=== PATIENT | female | born 1950 | race Caucasian/White ===

== ENCOUNTER 2020-01-13 14:13 | Inpatient (IN) | payer BC, OTHER, SELFPAY ==
[~2020-01-13] VITALS: Ht 154.9 cm; Wt 63.0 kg
[2020-01-13 14:51] VITALS: BP_SYST 102
--- NOTE | 2020-01-13 14:55 | NUR ---
SENT TO [facility]
--- NOTE | 2020-01-13 17:00 | NUR ---
PT IN WHEEL CHAIR AND LABS ORDERED
[2020-01-13 17:28] LABS: BASOPHILS % (AUTO) 0.2 % (0.0-2.0); HEMATOCRIT 42.3 % (36-48); HEMOGLOBIN 14.8 g/dL (12.0-16.0); LYMPHOCYTES # (AUTO) 1.4 K/uL (1.0-5.5); MEAN CORPUSCULAR HEMOGLOBIN 36 pg (27-31); MEAN CORPUSCULAR HGB CONC 35 % (32-36); MEAN CORPUSCULAR VOLUME 103 fL (79.0-98.0); MONOCYTES # (AUTO) 1.6 K/uL (0.0-1.0); MONOCYTES % (AUTO) 9.3 % (1.7-9.3); NEUTROPHILS # (AUTO) 14.4 K/uL (1.8-7.7); NEUTROPHILS % (AUTO) 82.5 % (40.0-70.0); PLATELET COUNT (AUTO) 328 K/uL (130-430); RED BLOOD CELL COUNT(AUTO) 4.11 MIL/uL (4.2-6.2); RED CELL DISTRIBUTION WIDTH 13.8 % (9.0-15.0); WHITE BLOOD COUNT (AUTO) 17.5 K/uL (4.8-10.8)
[2020-01-13 17:29] LABS: CALCIUM 9.1 mg/dL (8.4-11.0); CREATININE 0.91 mg/dL (0.55-1.30)
[2020-01-13] MEDS ORDERED: ONDANSETRON 4 MG ODT TAB PO ONE (17:30)
--- NOTE | 2020-01-13 17:40 | NUR ---
MEDCIATED WITH ALESSANDRA HERNANDEZ
[2020-01-13 17:52] LABS: ALBUMIN 2.7 g/dL (3.4-4.8); FREE T4 (FREE THYROXINE) 1.6 ng/dl (0.8-1.5); THYROID STIMULATING HORMONE 3.6 uIu/mL (0.36-3.74); TOTAL BILIRUBIN 1.3 mg/dL (0.0-1.0)
[2020-01-13 17:56] LABS: POTASSIUM 2.5 mmol/L (3.5-5.1)
--- NOTE | 2020-01-13 18:20 | NUR ---
placed in bed 2
--- NOTE | 2020-01-13 18:50 | NUR ---
Patient presented to ER C/O NGeneralized weakness. Patient ambulatory to ER A&Ox4 afebrile, nausea & vomiting present, denies Diarrhea, denies pain. Patient states she has increased weakness and decreased appetite x2 weeks, nausea & vomiting today. patient reports Hx HTN, diverticulitis, GERD and graves dz.
[2020-01-13] MEDS ORDERED: KCL 40 mEq in 100 mL (PREMIX) 100 ML IV ONE (19:00)
--- NOTE | 2020-01-13 19:10 | NUR ---
Note juliane in ED - 01/13/20 at 1919 by SDEDTD REPORT GIVEN TO HECTOR OLIVO, ENDORSED MEDICATION REC AND BELONGING LIST.
--- NOTE | 2020-01-13 19:15 | NUR ---
REPORT GIVEN TO HECTOR OLIVO, ENDORSED ALL CARE FOR CONTINUITY OF CARE.
--- NOTE | 2020-01-13 19:16 | NUR ---
SARAHI Serrano at bedside examining patient.
--- NOTE | 2020-01-13 19:20 | NUR ---
# 22 gauge angiocath placed to LAC. Use of asceptic technique. Opsite placed over site. Blood return noted. Blood for lab drawn from site. Flushed with 10 cc of normal saline. No evidence of infiltration noted. Patient tolerated well.
--- NOTE | 2020-01-13 19:26 | NUR ---
Patient states " I am allergy iodine.", Zach Arevalo notified.
[2020-01-13] MEDS ORDERED: ONDANSETRON HCL 4 MG/2 ML VIAL IVP ONE ×2 (19:30→21:00)
[2020-01-13] MEDS ORDERED: NACL 0.9% 1,000 ML IV ONE (20:00)
--- NOTE | 2020-01-13 20:01 | NUR ---
Patient came back from CT scan.
[2020-01-13] MEDS ORDERED: KCL 20 mEq in 100 mL (PREMIX) 100 ML IV ONE (20:12)
[2020-01-13] MEDS ORDERED: MAGNESIUM SULFATE 1 GM/2 ML VIAL IVP ONE (20:15)
--- NOTE | 2020-01-13 20:55 | NUR ---
ER at bedside examining patient.
--- NOTE | 2020-01-13 22:48 | NUR ---
Patient vomitting x2, given Zofran 4 mg IV as order.
--- NOTE | 2020-01-14 00:28 | NUR ---
Swabs Covid as order and send to lab.
[2020-01-14] MEDS ORDERED: MAGNESIUM SULFATE 50 ML IV ONE (00:32)
[2020-01-14] MEDS ORDERED: PROP10TA10 PO (01:18)
--- NOTE | 2020-01-14 01:19 | NUR ---
Patient had 3 home medications, patient is able to provide only one medication and could not remember another two medications.
[2020-01-14] MEDS ORDERED: KCL 20 mEq in 100 mL (PREMIX) 100 ML IV ONE (02:03)
--- NOTE | 2020-01-14 03:00 | NUR ---
Patient will be admitted to care of . Admitted to TELE unit. Will go to room 112A. Belongings list completed. Complete and up to date summary report printed. SBAR report to be given at bedside with opportunity for questions.
--- NOTE | 2020-01-14 03:10 | NUR ---
ADMISSION NOTE Received patient from ER via bradly, received report from GEOVANI YOUNG. Patient admitted with diagnosis of DYSPHAGIA & FAILURE TO THRIVE. Patient oriented to hospital routine, call light, toileting and safety-patient verbalized understanding.
[2020-01-14 03:27] VITALS: BP_SYST 142
--- NOTE | 2020-01-14 03:42 | NUR ---
Refused bed alarm: Patient reported having a fall yesterday d/t weakness. Explained to patient safety and fall precautions, including call light use and bed alarm purpose. Patient refused bed alarm despite education. Will continue monitoring.
--- NOTE | 2020-01-14 03:42 | NUR ---
CONSULTATION PAGED REASON FOR CONSULTATION: Dysphagia WAS CONSULT CALLED? Y PERSON WHO WAS NOTIFIED: Ailyn CONSULTING PHYSICIAN: Dr. Weiss CELL TOWER CLIMBER SPECIALTY: GI CELL TOWER CLIMBER PHONE NUMBER: [phone] ORDERING PHYSICIAN: Dr. Henry
[2020-01-14] MEDS ORDERED: LEVO25TA7 PO (07:25)
[2020-01-14] MEDS ORDERED: LIP20 PO (07:25)
[2020-01-14] MEDS ORDERED: OMEP20CA15 PO (07:25)
--- NOTE | 2020-01-14 07:35 | NUR ---
OPENING NOTES: RECEIVED PATIENT FROM STRAWHAT BLOCKING OPERATOR NURSE. PATIENT IS AWAKE AND ALERT x4 SITTING UP IN BED. PATIENT IS TOLERATING OXYGEN ON ROOM AIR WITH NO SIGNS OF DISTRESS OR SHORTNESS OF BREATH NOTED. PATIENT DENIES ANY PAIN AT THE MOMENT. IV SITE IS PATENT WITH NO SIGNS OF INFILTRATION NOTED. PATIENT IN STABLE CONDITION. SAFETY, FALL, AND ASPIRATION PRECAUTIONS ARE IN PLACE. BED LOCKED IN LOWEST POSITION WITH CALL LIGHT IN REACH. WILL CONTINUE TO MONITOR PATIENT FOR ANY CHANGES.
[2020-01-14] MEDS ORDERED: ONDANSETRON HCL 4 MG/2 ML VIAL IVP PRN (07:45)
[2020-01-14 07:59] LABS: ALBUMIN 2.1 g/dL (3.4-4.8); CALCIUM 7.8 mg/dL (8.4-11.0); CREATININE 0.89 mg/dL (0.55-1.30); TOTAL BILIRUBIN 0.8 mg/dL (0.0-1.0)
[2020-01-14 08:09] VITALS: BP_SYST 137
[2020-01-14 08:19] LABS: BASOPHILS % (AUTO) 0.3 % (0.0-2.0); HEMATOCRIT 38.3 % (36-48); HEMOGLOBIN 13.1 g/dL (12.0-16.0); LYMPHOCYTES # (AUTO) 1.5 K/uL (1.0-5.5); LYMPHOCYTES % (AUTO) 13.4 % (20.5-51.5); MEAN CORPUSCULAR HEMOGLOBIN 36 pg (27-31); MEAN CORPUSCULAR HGB CONC 34 % (32-36); MEAN CORPUSCULAR VOLUME 104 fL (79.0-98.0); MONOCYTES # (AUTO) 1.1 K/uL (0.0-1.0); MONOCYTES % (AUTO) 9.9 % (1.7-9.3); NEUTROPHILS # (AUTO) 8.8 K/uL (1.8-7.7); NEUTROPHILS % (AUTO) 76.4 % (40.0-70.0); PLATELET COUNT (AUTO) 210 K/uL (130-430); RED BLOOD CELL COUNT(AUTO) 3.67 MIL/uL (4.2-6.2); RED CELL DISTRIBUTION WIDTH 13.9 % (9.0-15.0); WHITE BLOOD COUNT (AUTO) 11.5 K/uL (4.8-10.8)
--- NOTE | 2020-01-14 08:23 | NUR ---
HIGH ALERT NOTE: Dr. Henry on the floor. Recieved high alert order from physician in person and identified within the medical roster to verify physician authenticity.
[2020-01-14 08:24] LABS: POTASSIUM 2.5 mmol/L (3.5-5.1)
[2020-01-14] MEDS ORDERED: POTASSIUM CHLORIDE 60 MEQ, LIDOCAINE JECT 2% PF 100 MG 75 MG in NS 500 ML IV ONE (08:30)
[2020-01-14] MEDS: PROPRANOLOL HCL 10 MG TABLET (INDERAL) PO SCH ×2 (09:00→09:49)
[2020-01-14] MEDS: ATORVASTATIN 20 MG TABLET PO SCH ×2 (09:00→09:49)
--- NOTE | 2020-01-14 09:10 | NUR ---
Nutrition Update Ej scale 18 noted. Pt admitted for dysphagia, failure to thrive Diet: NPO BMI: 20.8 kg/m2 RD to follow per nutrition care standards.
[2020-01-14] MEDS: D5NS 1,000 ML IV SCH ×3 (09:47→23:38)
[2020-01-14] MEDS: LEVOTHYROXINE SODIUM 0.025 MG TABLET PO ONE ×2 (09:49→10:04)
--- NOTE | 2020-01-14 10:25 | NUR ---
RN ROUNDS: PATIENT ASLEEP LAYING DOWN IN BED. PATIENT IS TOLERATING OXYGEN ON ROOM AIR WITH NO SIGNS OF DISTRESS OR SHORTNESS OF BREATH NOTED. IV SITE IS PATENT WITH NO SIGNS OF INFILTRATION NOTED AND RUNNING FLUIDS ORDERED. PATIENT IN STABLE CONDITION. WILL CONTINUE TO MONITOR PATIENT FOR ANY CHANGES.
[2020-01-14] MEDS: metroNIDAZOLE 500 mg/NS 100 ML IV SCH ×3 (10:41→21:18)
[2020-01-14] MEDS: LEVOFLOXACIN 500 MG/D5W 100 ML IV SCH (10:42)
[2020-01-14 12:22] VITALS: BP_SYST 117
--- NOTE | 2020-01-14 12:23 | NUR ---
RN ROUNDS: PATIENT IS AWAKE AND ALERT x4 LAYING DOWN IN BED. PATIENT IS TOLERATING OXYGEN ON ROOM AIR WITH NO SIGNS OF DISTRESS OR SHORTNESS OF BREATH NOTED. IV SITE IS PATENT WITH NO SIGNS OF INFILTRATION NOTED AND RUNNING FLUIDS ORDERED. PATIENT IN STABLE CONDITION. WILL CONTINUE TO MONITOR PATIENT FOR ANY CHANGES.
--- NOTE | 2020-01-14 16:25 | NUR ---
RN ROUNDS: PATIENT IS AWAKE AND ALERT x4 LAYING DOWN IN BED. PATIENT IS TOLERATING OXYGEN ON ROOM AIR WITH NO SIGNS OF DISTRESS OR SHORTNESS OF BREATH NOTED. IV SITE IS PATENT WITH NO SIGNS OF INFILTRATION NOTED. PATIENT IN STABLE CONDITION. WILL CONTINUE TO MONITOR PATIENT FOR ANY CHANGES.
[2020-01-14 16:42] VITALS: BP_SYST 152
--- NOTE | 2020-01-14 18:33 | NUR ---
CLOSING NOTES: PATIENT IS AWAKE AND ALERT x4 SITTING UP IN BED. PATIENT IS TOLERATING OXYGEN ON ROOM AIR WITH NO SIGNS OF DISTRESS OR SHORTNESS OF BREATH NOTED. PATIENT DENIES ANY PAIN AT THE MOMENT. IV SITE IS PATENT WITH NO SIGNS OF INFILTRATION NOTED AND RUNNING FLUIDS ORDERED. PATIENT IN STABLE CONDITION. SAFETY, FALL, AND ASPIRATION PRECAUTIONS REMAINED IN PLACE THROUGHOUT THE SHIFT. BED LOCKED IN LOWEST POSITION WITH CALL LIGHT IN REACH. WILL ENDORSE PATIENT CARE TO ONCOMING CORPORATE DEVELOPMENT MANAGER NURSE.
--- NOTE | 2020-01-14 19:25 | NUR ---
CHANGE OF SHIFT; endorsed by day shift. no resp. distress. for EGD tomorrow. call light within reach. pt. room close to nurses station.
[2020-01-14 20:15] VITALS: BP_SYST 157
--- NOTE | 2020-01-14 20:15 | NUR ---
NOTES: VS checked. IVF infusing via left antecubital. moves all extremities. kept NPO. been spitting up and coughing up some mucus. on personnel monitor and shows sinus rhythm. abdomen noted distended but soft, no bm x 4 5 days. VS checked.
--- NOTE | 2020-01-14 22:00 | NUR ---
NOTES: been awake. repositioned self for comfort. pt. needs attended.
--- NOTE | 2020-01-14 23:30 | NUR ---
NOTES: pt. remains awake, assisted to the restroom, able to ambulate. voided no bm.
--- NOTE | 2020-01-15 01:42 | NUR ---
NOTES: pt. medicated with IV Zofran, been having gastric reflux ,spitting with clear light brownish drainage and some mucus . kept NPO for EGD this am.
--- NOTE | 2020-01-15 02:45 | NUR ---
NOTES: pt. more calm and relax after medication. condition observed.
--- NOTE | 2020-01-15 05:00 | NUR ---
NOTES: condition unchanged, continue to monitor. IVF continuous.
[2020-01-15] MEDS: metroNIDAZOLE 500 mg/NS 100 ML IV SCH ×3 (05:04→22:03)
--- NOTE | 2020-01-15 06:37 | NUR ---
CLOSING NOTES; OR/gi lab called for an update on pt. still waiting for result of CMP specifically for Potassium. K rider was given yesterday. kept NPO. consent signed for EGD. IVF patent. for further and assist.
[2020-01-15] MEDS: LEVOTHYROXINE SODIUM 0.025 MG TABLET PO SCH (06:45)
[2020-01-15 07:01] LABS: ALBUMIN 2.2 g/dL (3.4-4.8); CALCIUM 8.2 mg/dL (8.4-11.0); CREATININE 0.87 mg/dL (0.55-1.30); TOTAL BILIRUBIN 0.8 mg/dL (0.0-1.0)
[2020-01-15 07:07] LABS: BASOPHILS % (AUTO) 0.1 % (0.0-2.0); HEMATOCRIT 40.7 % (36-48); LYMPHOCYTES # (AUTO) 0.6 K/uL (1.0-5.5); LYMPHOCYTES % (AUTO) 5.3 % (20.5-51.5); MEAN CORPUSCULAR HEMOGLOBIN 36 pg (27-31); MEAN CORPUSCULAR HGB CONC 34 % (32-36); MEAN CORPUSCULAR VOLUME 105 fL (79.0-98.0); MONOCYTES # (AUTO) 0.9 K/uL (0.0-1.0); MONOCYTES % (AUTO) 7.8 % (1.7-9.3); NEUTROPHILS % (AUTO) 86.8 % (40.0-70.0); PLATELET COUNT (AUTO) 239 K/uL (130-430); RED BLOOD CELL COUNT(AUTO) 3.89 MIL/uL (4.2-6.2); RED CELL DISTRIBUTION WIDTH 13.8 % (9.0-15.0); WHITE BLOOD COUNT (AUTO) 11.5 K/uL (4.8-10.8)
--- NOTE | 2020-01-15 07:18 | NUR ---
PAGED [facility] AT [phone]SHARMA STEVE ANKUSH MANUFACTURING ASSOCIATE.
[2020-01-15 07:20] LABS: POTASSIUM 2.6 mmol/L (3.5-5.1)
--- NOTE | 2020-01-15 07:28 | NUR ---
PAGED PAGED TABATHA HERNANDEZ AT [phone] SPOKE WITH EXCHANGE.
--- NOTE | 2020-01-15 07:30 | NUR ---
HIGH ALERT NOTE: Called Dr. Henry back at [phone] identified within the medical roster to verify physician authenticity.
--- NOTE | 2020-01-15 07:40 | NUR ---
OPENING NOTES: RECEIVED PATIENT FROM NURSING DIRECTOR NURSE. PATIENT IS AWAKE AND ALERT x4 SITTING UP IN BED. PATIENT IS TOLERATING OXYGEN ON ROOM AIR WITH NO SIGNS OF DISTRESS OR SHORTNESS OF BREATH NOTED. PATIENT DENIES ANY PAIN AT THE MOMENT. IV SITE IS PATENT WITH NO SIGNS OF INFILTRATION NOTED. PATIENT IN STABLE CONDITION. SAFETY, FALL, AND ASPIRATION PRECAUTIONS ARE IN PLACE. BED LOCKED IN LOWEST POSITION WITH CALL LIGHT IN REACH. WILL CONTINUE TO MONITOR PATIENT FOR ANY CHANGES.
[2020-01-15 08:00] VITALS: BP_SYST 131
[2020-01-15] MEDS: PROPRANOLOL HCL 10 MG TABLET (INDERAL) PO SCH (08:01)
[2020-01-15] MEDS: ATORVASTATIN 20 MG TABLET PO SCH (08:02)
[2020-01-15] MEDS: LEVOFLOXACIN 500 MG/D5W 100 ML IV SCH (08:19)
[2020-01-15] MEDS ORDERED: POTASSIUM CHLORIDE 60 MEQ, LIDOCAINE JECT 2% PF 100 MG 75 MG in NS 500 ML IV ONE (08:30)
[2020-01-15] MEDS ORDERED: PANTOPRAZOLE SODIUM 40 MG TAB PO SCH (09:00)
--- NOTE | 2020-01-15 10:29 | NUR ---
Dietitian Recommendations *Recommend continue NPO for now. *Recommend swallow eval to assess pt's swallowing ability. *Recommend slowly advance diet as tolerated per MD. Please see Nutrition Assessment for details. MARTIN SNOW
--- NOTE | 2020-01-15 10:42 | NUR ---
RN ROUNDS: PATIENT AWAKE, ALERT X4 LAYING DOWN IN BED. PATIENT IS TOLERATING OXYGEN ON ROOM AIR WITH NO SIGNS OF DISTRESS OR SHORTNESS OF BREATH NOTED. IV SITE IS PATENT WITH NO SIGNS OF INFILTRATION NOTED AND RUNNING FLUIDS ORDERED. PATIENT IN STABLE CONDITION. WILL CONTINUE TO MONITOR PATIENT FOR ANY CHANGES.
[2020-01-15 12:39] VITALS: BP_SYST 137
[2020-01-15] MEDS: D5NS 1,000 ML IV SCH (13:23)
--- NOTE | 2020-01-15 14:03 | NUR ---
RN ROUNDS: PATIENT IS AWAKE AND ALERT x4 SITTING DOWN IN BED. PATIENT IS TOLERATING OXYGEN ON ROOM AIR WITH NO SIGNS OF DISTRESS OR SHORTNESS OF BREATH NOTED. IV SITE IS PATENT WITH NO SIGNS OF INFILTRATION NOTED. PATIENT IN STABLE CONDITION. WILL CONTINUE TO MONITOR PATIENT FOR ANY CHANGES.
[2020-01-15 16:00] VITALS: BP_SYST 166
[2020-01-15 17:02] LABS: POTASSIUM 2.5 mmol/L (3.5-5.1)
--- NOTE | 2020-01-15 17:17 | NUR ---
PAGED PAGED TABATHA HERNANDEZ AT [phone] SPOKE WITH HARMAN.
[2020-01-15] MEDS ORDERED: POTASSIUM CHLORIDE 60 MEQ in NS 500 ML IV SCH (17:30)
[2020-01-15] MEDS ORDERED: MAGNESIUM SULFATE 50 ML IV ONE (17:30)
--- NOTE | 2020-01-15 18:39 | NUR ---
CLOSING NOTES: PATIENT IS AWAKE AND ALERT x4 SITTING UP IN BED. PATIENT IS TOLERATING OXYGEN ON ROOM AIR WITH NO SIGNS OF DISTRESS OR SHORTNESS OF BREATH NOTED. PATIENT DENIES ANY PAIN AT THE MOMENT. IV SITE IS PATENT WITH NO SIGNS OF INFILTRATION NOTED. PATIENT IN STABLE CONDITION. SAFETY, FALL, AND ASPIRATION PRECAUTIONS REMAINED IN PLACE THROUGHOUT THE SHIFT. BED LOCKED IN LOWEST POSITION WITH CALL LIGHT IN REACH. WILL ENDORSE PATIENT CARE TO ONCOMING PIT MANAGER NURSE.
--- NOTE | 2020-01-15 19:30 | NUR ---
Report received from day shift nurse. Pt is siting on edge of her bed fully awake, alert and oriented x4. No c/o pain or discomfort at this time. IVF of D5NS and K Tom are infusing well in LAC without any signs of infiltration at the IV site. Pt was instructed to nothing by mouth after midnight for EGD tomorrow and pt verbalized understanding. Call light and bedside items are within pt's reach.
[2020-01-15 20:00] VITALS: BP_SYST 149
--- NOTE | 2020-01-15 22:00 | NUR ---
Pt remains awake, alert and oriented x4. IVF and K Tom are infusing well in LAC. No c/o pain or discomfort. Fall and safety precautions are in place.
--- NOTE | 2020-01-16 | NUR ---
IVF and K Tom are infusing well. Fall and safety precautions are in place.
[2020-01-16 01:08] VITALS: BP_SYST 165
[2020-01-16 01:30] VITALS: BP_SYST 138
--- NOTE | 2020-01-16 01:45 | NUR ---
K Tom completely infused. No c/o pain or discomfort. IVF is infusing well at 60ml/hr without any signs of infiltration.
--- NOTE | 2020-01-16 04:30 | NUR ---
Pt is sleeping without any distress noted. Fall and safety precautions are in place.
[2020-01-16] MEDS: metroNIDAZOLE 500 mg/NS 100 ML IV SCH ×3 (06:01→21:07)
[2020-01-16] MEDS: LEVOTHYROXINE SODIUM 0.025 MG TABLET PO SCH (06:03)
[2020-01-16] MEDS: D5NS 1,000 ML IV SCH (06:39)
--- NOTE | 2020-01-16 07:25 | NUR ---
OPENING NOTES: RECEIVED PATIENT FROM METHODS SPECIALIST ENGINEER NURSE. PATIENT IS AWAKE AND ALERT x4 SITTING UP IN BED. PATIENT IS TOLERATING OXYGEN ON ROOM AIR WITH NO SIGNS OF DISTRESS OR SHORTNESS OF BREATH NOTED. PATIENT DENIES ANY PAIN AT THE MOMENT. IV SITE IS PATENT WITH NO SIGNS OF INFILTRATION NOTED. PATIENT IN STABLE CONDITION. SAFETY, FALL, AND ASPIRATION PRECAUTIONS ARE IN PLACE. BED LOCKED IN LOWEST POSITION WITH CALL LIGHT IN REACH. WILL CONTINUE TO MONITOR PATIENT FOR ANY CHANGES.
[2020-01-16 08:00] VITALS: BP_SYST 141
[2020-01-16] MEDS: LEVOFLOXACIN 500 MG/D5W 100 ML IV SCH (09:05)
--- NOTE | 2020-01-16 09:17 | NUR ---
PHYSICIAN ROUNDS: DR. BROOKS MAKE ROUNDS AND CHECK ON THE PATIENT. NO NEW ORDERS.
[2020-01-16] MEDS ORDERED: MEPERIDINE HCL/PF 100 MG/ML AMP ONE (09:21)
[2020-01-16] MEDS ORDERED: SIMETHICONE 40 MG/0.6 ML ML ONE (09:21)
[2020-01-16] MEDS ORDERED: MIDAZOLAM HCL 5 MG/5 ML VIAL ONE (09:22)
--- NOTE | 2020-01-16 09:38 | NUR ---
TO GI LAB: PATIENT TAKEN TO GI LAB VIA WHEEL CHAIR. NO ACUTE DISTRESS NOTED. INFORMED GI RN OF PATIENT LAST POTASSIUM FROM YESTERDAY 2.5, AWAITING RESULTS FROM LABS THIS MORNING.
[2020-01-16] MEDS: MEPERIDINE HCL/PF 100 MG/ML AMP ONE ×2 (09:58→10:10)
[2020-01-16] MEDS: MIDAZOLAM HCL 5 MG/5 ML VIAL ONE ×3 (09:58→10:11)
[2020-01-16] MEDS ORDERED: D5 IV SCH (10:00)
[2020-01-16] MEDS ORDERED: KCL IV SCH (10:00)
[2020-01-16] MEDS ORDERED: [UNRECOGNIZED DRUG - OTHER] IV SCH (10:00)
[2020-01-16] MEDS ORDERED: POTASSIUM CHLORIDE 40 MEQ in D5W 250 ML IV ONE (10:30)
[2020-01-16] MEDS ORDERED: FLUCONAZOLE 200 MG TABLET (DIFLUCAN) PO ONE (10:45)
[2020-01-16] MEDS ORDERED: PANTOPRAZOLE SODIUM 40 MG TAB PO ONE (11:00)
[2020-01-16 11:24] LABS: BASOPHILS % (AUTO) 0.3 % (0.0-2.0); HEMOGLOBIN 12.3 g/dL (12.0-16.0); LYMPHOCYTES # (AUTO) 0.7 K/uL (1.0-5.5); MEAN CORPUSCULAR HEMOGLOBIN 36 pg (27-31); MEAN CORPUSCULAR HGB CONC 34 % (32-36); MEAN CORPUSCULAR VOLUME 105 fL (79.0-98.0); MONOCYTES # (AUTO) 1.2 K/uL (0.0-1.0); NEUTROPHILS # (AUTO) 11.8 K/uL (1.8-7.7); NEUTROPHILS % (AUTO) 85.7 % (40.0-70.0); PLATELET COUNT (AUTO) 182 K/uL (130-430); RED BLOOD CELL COUNT(AUTO) 3.45 MIL/uL (4.2-6.2); RED CELL DISTRIBUTION WIDTH 13.7 % (9.0-15.0); WHITE BLOOD COUNT (AUTO) 13.8 K/uL (4.8-10.8)
[2020-01-16 11:38] LABS: CALCIUM 7.9 mg/dL (8.4-11.0); CREATININE 0.69 mg/dL (0.55-1.30)
--- NOTE | 2020-01-16 11:49 | NUR ---
Called GI lab called GI lab and spoke with Obdulia, per Obdulia the IV potassium replacement was hung in GI lab but they do not scan medication in eMAR, IV potassium replacement still infusing at this time.
[2020-01-16 11:50] LABS: TOTAL BILIRUBIN 0.7 mg/dL (0.0-1.0)
[2020-01-16 11:56] LABS: POTASSIUM 2.9 mmol/L (3.5-5.1)
[2020-01-16] MEDS: PROPRANOLOL HCL 10 MG TABLET (INDERAL) PO SCH (12:09)
[2020-01-16] MEDS: ATORVASTATIN 20 MG TABLET PO SCH (12:10)
[2020-01-16 12:16] VITALS: BP_SYST 137
--- NOTE | 2020-01-16 12:31 | NUR ---
ATTENDING MD DR DURAN WAS CALLED, RE: CRITICAL LAB. SPOKE TO GLORY..
--- NOTE | 2020-01-16 12:43 | NUR ---
CRITICAL LAB: SPOKE WITH DR. DURAN INFORMED HIM OF THE CRITICAL LAB POTASSIUM 2.9. INFORMED HIM THAT K-RIDER STILL INFUSING AT THIS TIME. NEW ORDERS FOR NEPHRO CONSULTATION RECEIVED. VERIFIED WITH READ BACK.
--- NOTE | 2020-01-16 12:54 | NUR ---
CONSULTATION CALLED REASON FOR CONSULTATION:HYPOKALEMIA WAS CONSULT CALLED?Y PERSON WHO WAS NOTIFIED:PRABHA CONSULTING PHYSICIAN:TINA LEI ALUMINA PLANT SUPERVISOR SPECIALTY:NEPHRO ALUMINA PLANT SUPERVISOR PHONE NUMBER:[phone] REQUESTING PHYSICIAN:TABATHA HERNANDEZ
--- NOTE | 2020-01-16 14:25 | NUR ---
RN ROUNDS: PATIENT IS AWAKE AND ALERT x4 LAYING DOWN IN BED. PATIENT IS TOLERATING OXYGEN ON ROOM AIR WITH NO SIGNS OF DISTRESS OR SHORTNESS OF BREATH NOTED. PATIENT DENIES PAIN AT THE MOMENT. IV SITE IS PATENT WITH NO SIGNS OF INFILTRATION NOTED. PATIENT IN STABLE CONDITION. WILL CONTINUE TO MONITOR PATIENT FOR ANY CHANGES.
[2020-01-16 16:15] VITALS: BP_SYST 111
--- NOTE | 2020-01-16 19:38 | NUR ---
CLOSING NOTES: BEDSIDE REPORT GIVEN TO INSIDE METER TESTER NURSE. PATIENT IS AWAKE AND ALERT x4 SITTING UP IN BED. PATIENT IS TOLERATING OXYGEN ON ROOM AIR WITH NO SIGNS OF DISTRESS OR SHORTNESS OF BREATH NOTED. PATIENT DENIES ANY PAIN AT THE MOMENT. IV SITE IS PATENT WITH NO SIGNS OF INFILTRATION NOTED. PATIENT IN STABLE CONDITION. SAFETY, FALL, AND ASPIRATION PRECAUTIONS REMAINED IN PLACE. BED LOCKED IN LOWEST POSITION WITH CALL LIGHT IN REACH. WILL CONTINUE TO MONITOR PATIENT FOR ANY CHANGES. CARE ENDORSE TO INSIDE METER TESTER RN.
[2020-01-16 19:50] VITALS: BP_SYST 139
--- NOTE | 2020-01-16 19:50 | NUR ---
INITIAL NOTE AT INITIAL ASSESSMENT, PATIENT IS RESTING IN BED, STABLE, NO SIGNS OF RESPIRATORY DISTRESS. PATIENT VERBALIZES NO PAIN. PLAN OF CARE FOR THE EVENING IS COMMUNICATED WITH THE PATIENT. PATIENT DEMONSTRATES CORRECT USAGE OF CALL LIGHT AT THIS TIME. BED IS LOCKED, ALARMED, AND AT THE LOWEST LEVEL. FALL SAFETY EDUCATION PROVIDED. FALL, SAFETY, ASPIRATION, AND RESPIRATORY PRECAUTIONS WILL BE TAKEN THROUGHOUT THE SHIFT.
[2020-01-16] MEDS: PANTOPRAZOLE SODIUM 40 MG TAB PO SCH (21:00)
[2020-01-16] MEDS: METOCLOPRAMIDE HCL 10 MG/2 ML VIAL IVP PRN (21:10)
--- NOTE | 2020-01-16 21:10 | NUR ---
PAIN NOTE PATIENT IS COMPLAINING OF NAUSEA, PRN MEDICATION IS GIVEN AT THIS TIME FOR PATIENTS NAUSEA COMPLAINT PER MD ORDERS. WILL REASSESS IF PRN MEDICATION GIVEN WAS EFFECTIVE. CALL LIGHT PLACED WITHIN REACH. BED IS LOCKED, ALARMED, AND AT THE LOWEST LEVEL.
--- NOTE | 2020-01-16 21:30 | NUR ---
MED PASS NOTE PATIENT VERBALIZED REGLAN WAS EFFECTIVE, AND THAT SHE FEELS MUCH BETTER. SCHEDULED MEDICATIONS GIVEN AT THIS TIME, PATIENT TOLERATED WELL. CALL LIGHT IS PLACED WITHIN REACH. BED IS LOCKED, ALARMED, AND AT THE LOWEST LEVEL.
[2020-01-16] MEDS ORDERED: POTASSIUM CHLORIDE 40 MEQ, MAGNESIUM SULFATE 4 GM in 0.45% NS 250 ML IV ONE (23:00)
--- NOTE | 2020-01-16 23:30 | NUR ---
NOTE PATIENT IS SLEEPING, STABLE, NO SIGNS OF RESPIRATORY DISTRESS. CALL LIGHT IS WITHIN REACH. BED IS LOCKED, ALARMED, AND AT THE LOWEST LEVEL.
[2020-01-17 00:05] VITALS: BP_SYST 113
--- NOTE | 2020-01-17 01:30 | NUR ---
NOTE PATIENT IS SLEEPING, STABLE, NO SIGNS OF RESPIRATORY DISTRESS. CALL LIGHT IS WITHIN REACH. BED IS LOCKED, ALARMED, AND AT THE LOWEST LEVEL.
[2020-01-17] MEDS: D5NS 1,000 ML IV SCH (02:58)
--- NOTE | 2020-01-17 03:30 | NUR ---
NOTE PATIENT IS RESTING IN BED, STABLE, NO SIGNS OF RESPIRATORY DISTRESS. CALL LIGHT IS WITHIN REACH. BED IS LOCKED, ALARMED, AND AT THE LOWEST LEVEL.
--- NOTE | 2020-01-17 05:00 | NUR ---
NOTE PATIENT IS SLEEPING, STABLE, NO SIGNS OF RESPIRATORY DISTRESS. CALL LIGHT IS WITHIN REACH. BED IS LOCKED, ALARMED, AND AT THE LOWEST LEVEL.
[2020-01-17] MEDS: LEVOTHYROXINE SODIUM 0.025 MG TABLET PO SCH (06:13)
[2020-01-17] MEDS: metroNIDAZOLE 500 mg/NS 100 ML IV SCH (06:13)
--- NOTE | 2020-01-17 06:45 | NUR ---
CLOSING NOTE PATIENT SLEPT WELL THROUGHOUT THE SHIFT, NO SHORTNESS OF BREATH NOTED. AT THIS TIME, PATIENT IS RESTING IN BED, STABLE, NO SIGNS OF RESPIRATORY DISTRESS. CALL LIGHT IS WITHIN REACH. BED IS LOCKED, ALARMED, AND AT THE LOWEST LEVEL. FALL, SAFETY, AND RESPIRATORY PRECAUTIONS HAVE BEEN TAKEN THROUGHOUT THE SHIFT. WILL CONTINUE TO MONITOR UNTIL SHIFT REPORT IS GIVEN AT BEDSIDE TO AM NURSE.
[2020-01-17 08:00] VITALS: BP_SYST 158
--- NOTE | 2020-01-17 08:00 | NUR ---
Note Pt sitting up in bed eating her breakfast. No SOB/resp distress or pain/discomfort noted at this time. Tele unit attached and intact at this time. IV in left AC intact and patent infusing IVF's well. No needs noted at this time. Call light within reach. Pt next to nurses' station for close observation.
[2020-01-17 08:26] LABS: CALCIUM 8.2 mg/dL (8.4-11.0); CREATININE 0.71 mg/dL (0.55-1.30); POTASSIUM 3.2 mmol/L (3.5-5.1)
[2020-01-17] MEDS: PROPRANOLOL HCL 10 MG TABLET (INDERAL) PO SCH (08:33)
[2020-01-17] MEDS: ATORVASTATIN 20 MG TABLET PO SCH (08:34)
[2020-01-17] MEDS: PANTOPRAZOLE SODIUM 40 MG TAB PO SCH (08:34)
[2020-01-17] MEDS: LEVOFLOXACIN 500 MG/D5W 100 ML IV SCH (08:35)
[2020-01-17] MEDS: METOCLOPRAMIDE HCL 10 MG/2 ML VIAL IVP PRN (08:42)
[2020-01-17] MEDS ORDERED: FLUCONAZOLE 100 MG TABLET (DIFLUCAN) PO SCH (09:00)
--- NOTE | 2020-01-17 09:00 | NUR ---
Note Pt was seen and assessed by Dr Henry at bedside at this time. Questions/concerns at this time. Call light within reach.
[2020-01-17 09:10] LABS: PHOSPHORUS 0.9 mg/dL (2.7-4.5)
[2020-01-17] MEDS ORDERED: POTASSIUM CHLORIDE 20 MEQ TAB.PRT.SR PO SCH (09:15)
[2020-01-17] MEDS ORDERED: DIF100 PO (09:24)
[2020-01-17] MEDS ORDERED: PANT40TA45 PO (09:24)
[2020-01-17] MEDS ORDERED: POTA20TA83 PO (09:24)
--- NOTE | 2020-01-17 11:20 | NUR ---
NOTE Tele unit dc'd and returned to monitoring manager.
[2020-01-17 11:32] VITALS: BP_SYST 93
[2020-01-17 11:41] VITALS: BP_SYST 135
--- NOTE | 2020-01-17 13:00 | NUR ---
Note Pt's IV was dc'd and site benign. No swelling/redness/bleeding/drainage noted at this time. Pt getting dressed in street clothes and packed all her belongings. Pt checked side table and drawers for belongings. Pt's will pt pt up at 1300. Pt was checked on q1' and PRN all shift for needs and care. Pt's appetite poor for breakfast and lunch. Pt was able to take all her PO medications with water - one at a time. Pt given her discharge instructions and questions/concerns were answered at this time. No needs noted at this time. Call light within reach.
--- NOTE | 2020-01-17 13:55 | NUR ---
Note Pt was discharged via wheelchair with all belongings. Pt stable at this time.
--- NOTE | 2020-01-17 14:45 | NUR ---
Note Pt's came back to belt picker pt's home medications from [facility]. Medications given to pt's at this time.
== END 2020-01-17 14:00 | disposition home or self-care (01) | DRG 392 ==
LOC: SED 14:13 → STU 21:01
PROVIDERS: ADMIT Internal Medicine Hospice and Palliative Medicine; ATTEND Internal Medicine Hospice and Palliative Medicine
PROC: 0DB68ZX Excision of Stomach, Via Natural or Artificial Opening Endoscopic, Diagnostic (ICD-10-PCS; 2020-01-16)
PROC: 0DB58ZX Excision of Esophagus, Via Natural or Artificial Opening Endoscopic, Diagnostic (ICD-10-PCS; principal; 2020-01-16 10:30)
DX: R13.10 Dysphagia, unspecified (principal); K22.10 Ulcer of esophagus without bleeding; I10 Essential (primary) hypertension; K21.9 Gastro-esophageal reflux disease without esophagitis; E78.5 Hyperlipidemia, unspecified; E87.6 Hypokalemia; K29.70 Gastritis, unspecified, without bleeding; Z20.828 Contact with and (suspected) exposure to other viral communicable diseases; K29.80 Duodenitis without bleeding; K52.9 Noninfective gastroenteritis and colitis, unspecified; K59.00 Constipation, unspecified; Z87.891 Personal history of nicotine dependence; Z88.0 Allergy status to penicillin; Z91.041 Radiographic dye allergy status
CPT/HCPCS: 36415; 43239; 71045; 76376; 80048; 80053; 83690-TC; 83735-TC; 83880; 84100-TC; 84132-TC; 84439; 84443-TC; 84484; 85025; 87081; 88305; 88312; 88313; 93005; 96365; 96366; 96367; 96375; 96376; 99285; G0378; J1956; J2175; J2250; J2405; J2765; J3475; J3480; J3490; J7040; J7060; Q0162